=== PATIENT | female | born 1955 | race Caucasian/White ===

== ENCOUNTER → 2016-10-25 | Outpatient (CLI) | payer BC ==
--- NOTE | 2016-10-25 14:08 | MAMMOGRAPHY REPORT ---
BILATERAL DIGITAL SCREENING MAMMOGRAM TOMOSYNTHESIS WITH CAD: 10/25/2016 CLINICAL HISTORY: Routine screening. Patient has no complaints. TECHNIQUE: Breast tomosynthesis in addition to standard 2D mammography was performed. Current study was also evaluated with a Computer Aided Detection (CAD) system. COMPARISON: Comparison is made to exams dated: 10/24/2015 mammogram, 07/22/2014 mammogram, 4 mammogram, 05/04/2013 mammogram, 04/29/2012 mammogram, and 03/19/2011 mammogram - [facility]. BREAST COMPOSITION: The tissue of both breasts is almost entirely fatty. FINDINGS: No suspicious masses, calcifications, or areas of architectural distortion are noted in e ither breast. There has been no significant interval change compared to prior exams. IMPRESSION: ACR BI-RADS CATEGORY 1: NEGATIVE There is no mammographic evidence of malignancy. A 1 year screening mammogram is recommended. The p atient will receive written notification of the results. Approximately 10% of breast cancers are not detected with mammography. A negative mammographic repor t should not delay biopsy if a clinically suggestive mass is present. Roxanne De La Garza M.D. /:10/25/2016 13:40:28 Correctional Program Officer: Monica KWON(Frankie)(Jeremy), [facility] letter sent: Normal 1/2 BI-RADS Code: ACR BI-RADS Category 1: Negative
== END | disposition home or self-care (01) ==
LOC: C.MAMM 13:03
PROVIDERS: ATTEND Nurse Practitioner Family
DX: Z12.31 Encounter for screening mammogram for malignant neoplasm of breast (principal)

== ENCOUNTER → 2016-10-30 | Outpatient (CLI) | payer BC ==
--- NOTE | 2016-10-30 13:39 | DIAGNOSTIC IMAGING REPORT ---
LEFT SHOULDER MIN 2 VIEWS ROUTINE CLINICAL HISTORY: LEFT SHOULDER PAIN TRAUMA COMPARISON: None. DISCUSSION: Degenerative changes are present within the AC joint. No acute fractures or dislocations are visualized. There are no visible particular calcifications. IMPRESSION: No acute fractures or dislocations. Degenerative changes within the left AC joint. Electronically signed by: Navin Valenzuela M.D. 10/30/2016 1:37 PM Dictated Date/Time: 10/30/2016 1:37 PM
== END | disposition home or self-care (01) ==
LOC: C.RAD1850 13:17
PROVIDERS: ATTEND Family Medicine
DX: M25.512 Pain in left shoulder (principal); M19.012 Primary osteoarthritis, left shoulder

== ENCOUNTER → 2017-07-23 | Outpatient (CLI) | payer BC ==
--- NOTE | 2017-07-23 15:26 | DIAGNOSTIC IMAGING REPORT ---
CHEST 2 VIEWS ROUTINE CLINICAL HISTORY: Cough. COMPARISON STUDY: No previous studies for comparison. FINDINGS: Lung volumes are normal. No pneumothorax or pleural effusion is present. Note is made of a 1.8 cm nodular opacity with the left lower lung, along the left heart border. Cardiomediastinal silhouette is normal. IMPRESSION: 1.8 cm nodular opacity within left lower lung, along the left heart border. This could reflect atelectasis, minimal airspace disease, nipple shadow or a pulmonary nodule. This is low suspicion however a follow-up chest CT is recommended to exclude a pulmonary nodule. Electronically signed by: Feliciano Penn M.D. 07/23/2017 3:24 PM Dictated Date/Time: 07/23/2017 3:21 PM
== END | disposition home or self-care (01) ==
LOC: C.RAD 14:55
PROVIDERS: ATTEND Student in an Organized Health Care Education/Training Program
DX: R05 Cough (principal); R91.8 Other nonspecific abnormal finding of lung field

== ENCOUNTER → 2017-08-12 | Outpatient (CLI) | payer BC ==
--- NOTE | 2017-08-12 08:55 | DIAGNOSTIC IMAGING REPORT ---
(CHEST) THORAX WITHOUT CT DOSE: 560.42 mGy.cm CLINICAL HISTORY: 62 years-old Female with LUNG NODULE. Follow-up study in a patient with a questioned lung nodule TECHNIQUE: Multiaxial CT images of the chest were performed without contrast. A dose lowering technique was utilized adhering to the principles of ALARA. COMPARISON: Chest radiographs 07/23/2017. FINDINGS: Low attenuating 5 mm nodule of the right thyroid is seen. No pathologic adenopathy of the chest identified. Heart is normal in size without pericardial effusion. Coronary arterial calcifications are noted. There is no aortic aneurysm identified. There is no pneumothorax or pleural effusion. No pulmonary nodules identified to correlate with the finding seen on comparison chest radiograph which was likely secondary to nipple shadow. 2 mm area of fissural lymph node abuts the left major fissure on image 75 series 4. Mild subsegmental subpleural reticular opacities of the right lung bases, notably within the medial basal segment right lower lobe adjacent to thoracic spine bridging osteophytes suggest areas of scarring/atelectasis. No suspicious pulmonary nodules identified. The central airways are patent. Imaged upper abdominal structures are within normal limits. Soft tissues are unremarkable. The bones appear intact. Posterior bridging osteophytes are noted in the mid thoracic spine at 6-C7 and T7-T8 resulting in at least mild central canal narrowing. IMPRESSION: 1. No acute intrathoracic abnormality identified. 2. No pulmonary nodule identified. The previously questioned opacity of the left lung base seen on comparison chest radiographs likely correlates with left breast nipple shadow. 3. Minimal subsegmental subpleural reticular opacities of the right lung base suggest areas of atelectasis/scarring. Electronically signed by: Sunny Wright M.D. 08/12/2017 8:54 AM Dictated Date/Time: 08/12/2017 8:47 AM
== END | disposition home or self-care (01) ==
LOC: C.CTS 08:29
PROVIDERS: ATTEND Student in an Organized Health Care Education/Training Program
DX: R91.1 Solitary pulmonary nodule (principal)

== ENCOUNTER → 2017-12-03 | Outpatient (CLI) | payer BC, OTHER ==
--- NOTE | 2017-12-04 07:49 | MAMMOGRAPHY REPORT ---
BILATERAL DIGITAL SCREENING MAMMOGRAM TOMOSYNTHESIS WITH CAD: 12/03/2017 CLINICAL HISTORY: Routine screening. Patient has no complaints. TECHNIQUE: Breast tomosynthesis in addition to standard 2D mammography was performed. Current study was also evaluated with a Computer Aided Detection (CAD) system. COMPARISON: Comparison is made to exams dated: 10/25/2016 mammogram, 10/24/2015 mammogram, 07/07/2014 mammogram, 05/04/2013 mammogram, 04/29/2012 mammogram, and 03/19/2011 mammogram - [facility]. BREAST COMPOSITION: The tissue of both breasts is almost entirely fatty. FINDINGS: No suspicious masses, calcifications, or areas of architectural distortion are noted in ei ther breast. There has been no significant interval change compared to prior exams. IMPRESSION: ACR BI-RADS CATEGORY 1: NEGATIVE There is no mammographic evidence of malignancy. A 1 year screening mammogram is recommended. The pa tient will receive written notification of the results. Approximately 10% of breast cancers are not detected with mammography. A negative mammographic report should not delay biopsy if a clinically suggestive mass is present. Roxanne De La Garza M.D. /:12/03/2017 12:36:06 Electrical Inspector: Anjali KWON(Frankie)(M), [facility] letter sent: Normal 1/2 BI-RADS Code: ACR BI-RADS Category 1: Negative
== END | disposition home or self-care (01) ==
LOC: C.MAMM 11:46
PROVIDERS: ATTEND Nurse Practitioner Family
DX: Z12.31 Encounter for screening mammogram for malignant neoplasm of breast (principal)